=== PATIENT | female | born 1995 | race African-American/Black ===

== ENCOUNTER 2016-06-21 23:27 | Emergency (ER) | payer BC ==
[~2016-06-21] VITALS: Ht 175.3 cm; Wt 61.2 kg
[2016-06-21] MEDS ORDERED: NKM (23:36)
[2016-06-21 23:56] VITALS: BP 122/74
[2016-06-22 00:06] LABS: APPEARANCE,URINE CLEAR; KETONES,URINE NEGATIVE (NEGATIVE); LEUKOCYTE ESTERASE ,URINE 1+ (NEGATIVE); NITRITE,URINE NEGATIVE (NEGATIVE); PH,URINE 6.5 (4.5-8.0); PROTEIN,URINE NEGATIVE (NEGATIVE); UROBILINOGEN,URINE NORMAL MG/DL (0.0-1.0)
[2016-06-22 00:19] LABS: BACTERIA,URINE FEW /HPF; RBC,URINE 0 /HPF (0 - 2); SQUAMOUS EPITHELIAL CELL,UR FEW /LPF (NONE/OCC); WBC,URINE 0-2 /HPF (0 - 2)
[2016-06-22] MEDS ORDERED: IBUPROFEN600 MG ORAL (00:46)
[2016-06-22] MEDS ORDERED: DOXYCYCLINE MO100 MG ORAL (00:46)
--- NOTE | 2016-06-22 00:46 | Emergency Room Report ---
History of Present Illness General Chief Complaint: Abdominal Pain Source: Patient Present Illness HPI Is a 21-year-old female who presents with lower pelvic pain for the last 2 weeks. She has some cloudy urine. Denies any fever chills denies any dysuria frequency. Denies any discharge. 2 months goes she and her partner was treated for Chlamydia that was found Pap smear. Denies any other complaint. No nausea vomiting. Allergies: Coded Allergies: No Known Allergies (Unverified , 06/21/16) Patient History Past Medical History: see triage record, old chart reviewed Past Surgical History: none Pertinent Family History: none Social History: Denies: smoking Last Menstrual Period: may Now: No Immunizations: other Reviewed Nursing Documentation: PMH: Agreed, PSxH: Agreed Nursing Documentation-PMH Past Medical History: No Stated History Review of Systems Eye: Denies: blurred vision, eye pain ENT: Denies: ear pain, nose congestion, throat swelling Respiratory: Denies: cough, shortness of breath Cardiovascular: Denies: chest pain, palpitations Gastrointestinal: Denies: abdominal pain, diarrhea, nausea, vomiting Musculoskeletal: Denies: back pain, joint pain Skin: Denies: rash Neurological: Denies: headache, numbness Endocrine: Denies: increased thirst, increased urine Hematologic/Lymphatic: Denies: easy bruising All Other Systems: negative except mentioned in HPI Physical Exam Vital Signs Date Time Temp Pulse Resp B/P Pulse Ox O2 Delivery O2 Flow Rate FiO2 06/21/16 23:31 98.2 60 16 122/80 100 Room Air vitals normal Sp02 EP Interpretation: reviewed, normal General Appearance: well appearing, no apparent distress, alert Head: normocephalic, atraumatic Eyes: bilateral eye EOMI, bilateral eye PERRL ENT: hearing grossly normal, normal pharynx Neck: full range of motion, supple, no meningismus Respiratory: chest non-tender, lungs clear, normal breath sounds Cardiovascular #1: regular rate, rhythm, no murmur Gastrointestinal: normal bowel sounds, non tender, no mass, no organomegaly, no bruit, non-distended Musculoskeletal: back normal, gait/station normal, normal range of motion Psychiatric: mood/affect normal Skin: warm/dry Medical Decision Making Diagnostic Impression: Primary Impression: Dysuria Additional Impression: Abdominal pain Qualified Codes: R10.30 - Lower abdominal pain, unspecified ER Course Patient present with abdominal pain and dysuria. Abdominal exam is unremarkable. I see no evidence of any 2 abdomen or obstruction. She may have UTI or cervicitis. Put on antibiotics. If not better may need an ultrasound. Last Vital Signs Date Time Temp Pulse Resp B/P Pulse Ox O2 Delivery O2 Flow Rate FiO2 06/21/16 23:56 98.2 65 16 122/74 100 Room Air Status: improved Disposition: HOME, SELF-CARE Condition: Stable Scripts Ibuprofen* (MOTRIN*) 600 Mg Tablet 600 MG ORAL THREE TIMES A DAY, #30 TAB 0 Refills Prov: LETI DIXON M.D. 06/22/16 Doxycycline Monohydrate* (DOXYCYCLINE MONOHYDRATE*) 100 Mg Capsule 100 MG ORAL Q12H, #14 CAP 0 Refills Prov: LETI DIXON M.D. 06/22/16 Referrals: NOT CHOSEN [facility]/,REFERRING (PCP) Patient Instructions: Abdominal Pain, Adult Additional Instructions: Followup with your Dr. in 7 days. Return if symptom worsen. LETI DIXON M.D. Jun 22, 2016 00:46
[2016-06-22 00:55] VITALS: BP_SYST 122; BP_SYST 125; BP_DIAS 74
== END 2016-06-22 00:55 | disposition home or self-care (01) ==
LOC: EMR 23:45
DX: R30.0 Dysuria (principal); R10.30 Lower abdominal pain, unspecified
CPT/HCPCS: 81003; 81025; 99282